=== PATIENT | male | born 1975 | race Caucasian/White ===

== ENCOUNTER → 2016-07-28 | Outpatient (CLI) | payer OTHER ==
[~2016-07-28] VITALS: Ht 185.4 cm; Wt 138.7 kg
[2016-07-28 12:39] VITALS: BP 149/84; PULSE 84; Ht 185.4 cm; Wt 138.7 kg
== END | disposition home or self-care (01) ==
LOC: C.NEUR 12:26
PROVIDERS: ATTEND Internal Medicine Pulmonary Disease
DX: R06.83 Snoring (principal); J30.89 Other allergic rhinitis; R06.81 Apnea, not elsewhere classified

== ENCOUNTER → 2016-09-03 | Outpatient (CLI) | payer OTHER ==
--- NOTE | 2016-09-04 05:49 | PAP/PSG TECHNICIAN REPORT ---
[facility] Medical Device Sales Representative Polysomnogram Report Study name: None Report date: 09/04/2016 Study date: 09/03/2016 Referring Physician: Celestino Lima M.D. Name: YONI TOTH Interpreting Physician: Celestino Lima M.D. Date of : 1975 Medical Device Sales Representative: Sonali Aguiar RPSGT. Sex: Male Age: 41 StudyType: PSG Weight: 305.8 lbs Height: 41 years, Height 6' 1" Neck Circum:19inches BMI: 40.34 Medications: Benadryl 25mg, Flonase 50mcg/act, Montelukast Spdium 10mg, Ranitidine 300mg, Zyrtec 10mg Patient History Study started on room air with no ETCO2 monitoring in room #8. 41 yr old male here tonight for a diagnostic psg. He complains of EDs loud snoring and witnessed apnea. His ESS=3/24. Neck circ=19inches. Parameters Monitored NPSG: E1-M2, E2-M1, Fp1-M2, Fp2-M1, F3-M2, F4-M2, F4-M1, C3-M2, C4-M2, C4-M1, O1-M2, O2-M2, O2-M1, T3-M2, T4-M1, P3-M2, P4-M1, CHIN1, CHIN2, HR, EKG, Legs, PFLOW, SNOR, FLOW, CFLOW, Tidal Volume, THOR, ABDO, SpO2, PLTH, CPRESS, ETCO2 Wave, ETCO2, pH Sleep Architecture Sleep Stages Time at Lights Off 10:03:29 PM STAGES Time (min.) TST (%) Time at Lights On 5:33:59 AM Wake 153.0 -- Total Recording Time (TRT) 450.50 min. N1 15.0 5 Total Sleep Period (TSP) 349.0 min. N2 201.0 68 Total Sleep Time (TST) 297.5min. N3 61.5 21 Awake Time 153.0 min. REM 20.0 7 Wake after Sleep Onset 114.0 min. Sleep Efficiency (SE) 66 % Sleep Onset Latency (RENEE) 39.0 min. Number of Stage 1 Shifts None Awakenings 21 Stage Changes 72 Number of REM periods 2 REM 20.0 7 REM Latency 213.5 min. NREM 277.5 93 Body Position Analysis Supine Right Left Side Prone Vertical Total Sleep Time (min.) 137.4 117.7 108.0 225.70 0.0 0.0 Total Sleep Time (%) 24% 40% 36% 76 0% N/A% Total Sleep Time REM (min.) 0.0 0.0 20.0 None 0.0 0.0 Total Sleep Time NREM (min.) 71.8 117.7 88.0 None 0.0 0.0 Intermittent Wake (min.) 65.6 54.9 32.5 None 0.0 0.0 Total Sleep Period (%) 28% None None None None None Arousals Myoclonus (PLM) * Events Count Index Events Count Index Spontaneous 14 3 Events Awake (PLMW) 51 20.0 Respiratory 2 0.6 Events Asleep w/ Arousal (PLMA) 3 0.6 PLM 2 1 Events Asleep w/o Arousal (PLMS) 17 3.4 Snoring 3 1 Total Asleep 20 4.0 Total 21 4 Total 71 9 Respiratory Analysis * CA OA MA CH H RERA Total Count 5 2 1 0 21 0 29 Index 1.0 0.4 0.2 0 4.2 0 5.8 Mean Duration 15.1 14.4 21.9 0.00 21.7 0.0 20.0 Longest Duration 19.1 16.5 21.9 0.00 21.9 0.0 54.3 Respiratory Event Summary Total Supine ~Supine Right Left Prone REM NREM Apneas Count 8 2 6 2 4 N/A 0 8 Index 1.6 2 2 1.0 2.2 N/A 0 2 Hypopneas (4% Desat) Count 21 9 12 3 9 N/A 0 21 Index 4.2 7.5 3 1.5 5.0 N/A 0.0 4.5 Apneas & All Hypopneas Count 29 11 18 5 13 N/A 0 29 Index 5.8 9 5 3 7 N/A 0.0 6.3 Respiratory Events (Meat Passer+All Hyp+RERA) Count 29 11 18 5 13 N/A 0 29 Index 5.8 9 5 2.5 7.2 N/A 0.0 6.3 Respiratory Related Arousal Count 2 11 0 0 0 N/A 0 3 Index 0.6 3 0 0 0 N/A 0 1 Snoring Analysis Supine Right Left Prone REM NREM Total Snore duration 7.8 min Snores count 138 6 136 N/A 0 280 280 Snore mean duration 1.7 Sec Snores index 115 3 76 N/A 0.0 60.5 56.5 TST with snoring (%) 2.6% Desaturation Event Summary: Minimum %SpO2 Event Count Mean/Min/Max Duration(sec.) Desaturation Index % Time In Bed > 90 38 29.3 / 7.3 / 60.0 6.8 74.6 86 - 90 8 23.3 / 13.0 / 38.0 4.2 25.4 81 - 85 0 N/A 0.0 0.0 76 - 80 0 N/A 0.0 0.0 71 - 75 0 N/A 0.0 0.0 66 - 70 0 N/A 0.0 0.0 61 - 65 0 N/A 0.0 0.0 56 - 60 0 N/A 0.0 0.0 51 - 55 0 N/A 0.0 0.0 < 50 0 N/A 0.0 0.0 Total REM NREM Awake <50% 0.0 min. 0.0 min. 0.0 min. 0.0 min. 51 - 60% 0.0 min. 0.0 min. 0.0 min. 0.0 min. 61 - 70% 0.0 min. 0.0 min. 0.0 min. 0.0 min. 71 - 80% 0.0 min. 0.0 min. 0.0 min. 0.0 min. 81 - 90% 114.5 min. 13.0 min. 78.9 min. 22.6 min. 91 - 100% 335.8 min. 7.0 min. 198.6 min. 130.2 min. Average 92 90 91 92 Minimum SpO2 87 87 87 89 Desaturation Event Index 5.1 6.0 6.5 2.7 # Desat. Events below 89% 8 2 6 N/A Time(%) with Saturation below 89% 0.9 0.3 0.6 0.0 Time(min.) with Saturation below 89% 4.1 1.3 2.8 0.0 Time (mins) REM (mins) NREM (mins) % of TST SpO2 Below 90% 27 2 N25 11.2 SpO2 Below 88% 3 0 0 0 Heart Rate Analysis Min (bpm) Max (bpm) Average (bpm) Awake 61 127 74 NREM 57 106 70 REM 65 88 74 Overall 57 106 70 Supplemental O2 Values Minimum O2 level: None Value Start Time End Time Medical Device Sales Representative Comments Mr. Toth slept in the right, left and supine positions. No cardiac arrhythmia noted. Some limb movements noted. No bruxism noted. Snoring was noted and scored as a 2 on a scale of 1 through 5. (0=no snoring, 5=snoring loud enough to be heard through a closed door or down the [address]) He did not use the restroom during the night. He stated that he slept a little worse than when at home. The final report will be interpreted and signed by a sleep physician. The completed physician report will then be placed in the patient medical record. Therapy (cm H2O) 0 TIB (min.) 450.5 TST (min.) 297.5 Sleep Onset (min.) 39.0 REM Onset From Sleep (min.) 213.5 Sleep Efficiency % 66 Wakefulness (%) 34 Wakefulness (min.) 153.0 NREM 1 (%) 5 NREM 1 (min.) 15.0 NREM 2 (%) 68 NREM 2 (min.) 201.0 NREM 3 (%) 21 NREM 3 (min.) 61.5 REM (%) 7 REM (min.) 20.0 # Arousals 21 Arousal Index 4 # Snore 280 Snore Index 56.5 AHI 5.8 AHI Supine 9 AHI Non-Supine 5 NREM AHI 6.3 REM AHI 0.0 RDI 5.8 # Obstructive Apnea 2 # Central Apnea 5 # Mixed Apnea 1 # Hypopneas 21 RERAs 0 Total Respiratory Events 37 Time Below SpO2 89% (min.) 4.1 Mean NREM SpO2 (%) 91 Mean REM SpO2 (%) 90 Mean Sleep SpO2 (%) 91 Min NREM SpO2 (%) 87 Min REM SpO2 (%) 87 Position Supine (min.) 137.4 Position Non-supine (min.) 225.7 LM Index Sleep 4.0 LM Index NREM 4.3 LM Index REM 0.0 Mean Heart Rate (bpm) 70 Min Heart Rate (bpm) 57
--- NOTE | 2016-09-08 09:04 | POLYSOMNOGRAPH REPORT ---
CLINICAL DATA: A 41-year-old male with BMI of 40.3 referred by myself and Dr. Guzman with excessive daytime sleepiness, loud snoring, and witnessed apnea. His Bolton Sleepiness Score was 3/24. SLEEP ARCHITECTURE: Total sleep period was 349 minutes. Total sleep time was 297.5 minutes divided between 277.5 minutes of non-REM sleep and 20 minutes of REM sleep. Sleep onset latency was delayed at 39 minutes. REM latency was delayed at 213.5 minutes. Sleep efficiency reduced at 66%. Wake after sleep onset was elevated at 114 minutes. Sleep consisted of stage N1 5%, N2 68%, N3 21%, REM 7%. AROUSAL DATA: Twenty arousals were recorded for an index of 4 per hour. PLM DATA: Twenty limb movements during sleep were noted for an index of 4 per hour with arousal index of 0.6 per hour. RESPIRATORY DATA: Very mild sleep apnea was documented. The AHI was 5.8. There were 5 central, 2 obstructive, and 1 mixed apneic episodes. The longest duration of apnea was 21.9 seconds. There were 21 hypopneic episodes. The mean duration of hypopnea was 21.7 seconds. OXIMETRY DATA: Very transient nocturnal hypoxemia was seen. The oxygen fabricio was 87% during REM sleep. The mean saturation was 92%. Time below 88% was 3 minutes. EKG: Heart rates ranged from 57 to 106 beats per minute. No arrhythmias were noted. EXECUTIVE VP'S COMMENTS: The patient slept in the right, left, and supine positions. Snoring was mild to moderate, rated 2 on a scale of 1 through 5. IMPRESSION: Very mild sleep apnea/hypopnea with an AHI of 5.8. RECOMMENDATIONS: The patient may benefit from weight loss, use of an oral appliance, or repeat sleep study with CPAP. Clinical correlation is needed. [facility]
== END | disposition home or self-care (01) ==
LOC: C.NEUR 21:00
PROVIDERS: ATTEND Internal Medicine Pulmonary Disease
DX: R06.81 Apnea, not elsewhere classified (principal)

== ENCOUNTER → 2016-09-29 | Outpatient (CLI) | payer OTHER ==
[~2016-09-29] VITALS: Ht 185.4 cm; Wt 136.0 kg
[2016-09-29 14:51] VITALS: BP 142/86; PULSE 98; Ht 185.4 cm; Wt 136.0 kg
== END | disposition home or self-care (01) ==
LOC: C.NEUR 14:00
PROVIDERS: ATTEND Internal Medicine Pulmonary Disease
DX: G47.30 Sleep apnea, unspecified (principal)

== ENCOUNTER → 2017-11-24 | Outpatient (CLI) | payer OTHER ==
[2017-11-24 10:06] LABS: ALKALINE PHOSPHATASE 60 U/L (45-117); ALT/SGPT 47 U/L (12-78); AST/SGOT 22 U/L (15-37); BLOOD UREA NITROGEN 11 mg/dl (7-18); CALCIUM 9.3 mg/dl (8.5-10.1); CARBON DIOXIDE 27 mmol/L (21-32); CHOLESTEROL 240 mg/dl (0-200); CREATININE 0.92 mg/dl (0.60-1.40); GLUCOSE 109 mg/dl (70-99); LDL CHOLESTEROL CALCULATED 165 mg/dl; POTASSIUM 4.1 mmol/L (3.5-5.1); SODIUM 140 mmol/L (136-145); TOTAL PROTEIN 7.8 gm/dl (6.4-8.2)
== END | disposition home or self-care (01) ==
LOC: C.LAB1850 08:14
PROVIDERS: ATTEND Internal Medicine
DX: E78.5 Hyperlipidemia, unspecified (principal); E66.3 Overweight